=== PATIENT | female | born 1975 | race Caucasian/White ===

== ENCOUNTER 2021-12-06 11:23 | Outpatient (CLI) | payer OTHER, SELFPAY ==
[2021-12-06 22:23] LABS: Vitamin D 25 Hydroxy* 18 ng/mL (30-80)
[2021-12-06 22:59] LABS: Vitamin B12* > 1000 pg/mL (243-894)
[2021-12-08 19:21] LABS: Follicle Stimulating Hormone 16.7 IU/L
== END 2021-12-06 11:24 | disposition home or self-care (01) ==
PROVIDERS: PCP Physician Assistant Medical; Visit Provider Physician Assistant Medical
DX: E53.8 Deficiency of other specified B group vitamins (principal); R53.83 Other fatigue; R79.89 Other specified abnormal findings of blood chemistry
CPT/HCPCS: 82306; 82607; 83001

== ENCOUNTER 2022-05-02 11:35 | Outpatient (CLI) | payer OTHER, SELFPAY ==
[2022-05-02 22:03] LABS: Vitamin D 25 Hydroxy* 27 ng/mL (30-80)
== END 2022-05-02 11:36 | disposition home or self-care (01) ==
LOC: FRMREF 11:36
PROVIDERS: PCP Physician Assistant Medical; Visit Provider Physician Assistant Medical
DX: R79.89 Other specified abnormal findings of blood chemistry (principal)
CPT/HCPCS: 82306

== ENCOUNTER 2022-06-02 14:40 | Outpatient (CLI) | payer OTHER, SELFPAY ==
--- NOTE | 2022-06-02 15:00 | CRLHL7_ITS ---
For Patients: As a result of the Century Cures Act, medical imaging exams and procedure reports are released immediately into your electronic medical record. You may view this report before your referring provider. If you have questions, please contact your health care provider. BILATERAL SCREENING MAMMOGRAM WITH COMPUTER-AIDED DETECTION TECHNIQUE: CC and MLO views were obtained. These mammographic images have been obtained using full-field digital technique. These mammographic images were interpreted with the benefit of computer-aided detection. COMPARISON FILM: 05/31/21, 12/22/19, 03/01/18. FINDINGS: There are scattered areas of fibroglandular density. IMPRESSION: There is no radiographic evidence for malignancy. ASSESSMENT: BI-RADS Category 1: Negative RECOMMENDATION: Routine screening mammogram in 1 year. A lay language report of this examination will be provided to the patient. SAE MARKS M.D. Diagnostic Radiologist [email or web address] Transcribed: 06/03/2022, 2:[address]/Dictated by: Sae Marks MD @ 06/03/2022 12:09:00 PM (Electronically Signed)
== END 2022-06-02 14:41 | disposition home or self-care (01) ==
LOC: MAMMO 14:41
PROVIDERS: PCP Physician Assistant Medical; Visit Provider Physician Assistant Medical
DX: Z12.31 Encounter for screening mammogram for malignant neoplasm of breast (principal)
CPT/HCPCS: 77063; 77067

== ENCOUNTER 2022-06-09 13:34 | Outpatient (REF) | payer OTHER, SELFPAY ==
[2022-06-09 15:17] LABS: Free T4 Free Thyroxine* 1.26 ng/dL (0.70-1.85)
[2022-06-09 15:31] LABS: Thyroid Stimulating Hormone* 0.068 uIU/mL (0.270-4.20)
[2022-06-11 23:38] LABS: Free T3 2.9 pg/mL (2.5-4.3)
== END 2022-06-09 13:35 | disposition home or self-care (01) ==
LOC: NPINS 13:34
PROVIDERS: PCP Physician Assistant Medical; Referring Provider Physician Assistant Medical; Visit Provider Internal Medicine Endocrinology, Diabetes & Metabolism
DX: E03.9 Hypothyroidism, unspecified (principal)
CPT/HCPCS: 84439; 84443; 84481

== ENCOUNTER 2023-07-21 15:37 | Outpatient (CLI) | payer OTHER, SELFPAY ==
--- NOTE | 2023-07-21 16:00 | MM_ITS ---
Patient: CROW RÍOS Facility:?[facility] Patient ID:?[id number] Site Patient ID:?[id number] Site :?[id number] Study:?XRay-Breast Bilateral 3D W/CAD-07/21/2023 4:07:53 PM Ordering Physician:Jazmin Final Report: BILATERAL SCREENING MAMMOGRAM WITH COMPUTER-AIDED DETECTION AND TOMOSYNTHESIS TECHNIQUE: CC and MLO views were obtained. These mammographic images have been obtained using full-field digital technique. These mammographic images were interpreted with the benefit of computer-aided detection. Breast Tomosynthesis was used in this interpretation. COMPARISON FILM: 06/02/22, 05/31/21, 12/22/19. FINDINGS: There are scattered areas of fibroglandular density IMPRESSION: There is no radiographic evidence for malignancy. ASSESSMENT: BI-RADS Category 1: Negative RECOMMENDATION: Routine screening mammogram in 1 year. A lay language report of this examination will be provided to the patient. Sae Pedraza M.D. Diagnostic Radiologist [email or web address] [email or web address]/[email or web address] R& Transcribed: 7:56 p.m. YESENIA/Dictated by: Sae Pedraza MD @ 07/23/2023 1:04:00 PM Signed by:?Sae Pedraza MD @07/23/2023 8:29:56 PM (Electronic Signature)
== END 2023-07-21 15:38 | disposition home or self-care (01) ==
LOC: MAMMO 15:38
PROVIDERS: PCP Physician Assistant Medical; Visit Provider Physician Assistant Medical
DX: Z12.31 Encounter for screening mammogram for malignant neoplasm of breast (principal)
CPT/HCPCS: 77063; 77067

== ENCOUNTER 2024-01-18 08:39 | Outpatient (CLI) | payer OTHER, SELFPAY | END 2024-01-18 08:40 | disposition home or self-care (01) | LOC: NFLDREF 01-21 07:10 | PROVIDERS: PCP Physician Assistant Medical; Referring Provider Physician Assistant Medical; Visit Provider Physician Assistant Medical | DX: R79.89 Other specified abnormal findings of blood chemistry (principal); R53.83 Other fatigue; R63.5 Abnormal weight gain; R03.0 Elevated blood-pressure reading, without diagnosis of hypertension; E78.5 Hyperlipidemia, unspecified; E03.9 Hypothyroidism, unspecified; E53.8 Deficiency of other specified B group vitamins | CPT/HCPCS: 80053; 80061; 82306; 82607; 82728 ==

== ENCOUNTER 2024-01-25 11:15 | Outpatient (CLI) | payer OTHER, SELFPAY ==
[2024-01-28 00:17] LABS: HPV Source Cervix; HPV, High Risk by TMA Not Detected
== END 2024-01-25 11:16 | disposition home or self-care (01) ==
PROVIDERS: PCP Physician Assistant Medical; Visit Provider Physician Assistant
DX: Z12.4 Encounter for screening for malignant neoplasm of cervix (principal)
CPT/HCPCS: 87624; 87625; 88141; 88142

== ENCOUNTER 2024-07-23 13:18 | Emergency (ER) | payer OTHER, SELFPAY ==
[2024-07-23 13:20] VITALS: BP 181/102; PULSE 76; RESP 18; TEMP 36.4; O2SAT 98; BMI 41.6
--- NOTE | 2024-07-23 13:41 | CRLHL7_ITS ---
For Patients: As a result of the Century Cures Act, medical imaging exams and procedure reports are released immediately into your electronic medical record. You may view this report before your referring provider. If you have questions, please contact your health care provider. INDICATION: Chest pain TECHNIQUE: Chest 1 views. COMPARISON: None FINDINGS: Limitations: AP portable semi upright under penetrated study with large patient habitus. Tubes and devices: None. Lungs: Lungs are likely clear. No focal infiltrate or mass. Pleura: No pleural effusion. No pneumothorax. Heart: Heart size and vasculature are normal in caliber and appearance. Susan and Mediastinum: No enlargement. Bones and soft tissues: No significant findings. IMPRESSION: Suboptimal technique. The lungs are likely clear but if left lower lobe infiltrate is suspected then suggest repeat CXR with PA and lateral views. Dictated by Deepak Marr MD @ 07/23/2024 2:35:56 PM (Electronically Signed)
--- NOTE | 2024-07-23 13:48 | ED_ITS ---
HPI - Chest Pain General Chief Complaint: Chest Pain Stated Complaint: Signs of Heart Attack Time Seen by Provider: 07/23/24 13:25 History of Present Illness HPI narrative: Patient is a 49-year-old woman who recently increased her activity level. She since that time is developed hand and foot swelling with exertion. She also has been having some pain in the posterior chest in the midline. She has been more fatigued than normal. She has had no fevers no chills no night sweats no overt anterior chest pain no nausea no vomiting no change in her bowel or bladder. Patient is extremely anxious as her father has a history of coronary disease and she is worried that she may have a heart attack. She brought herself to the emergency room today stating that she would like piece of mind that everything is okay. She has been out of her Synthroid for 2-3 weeks. Related Data Home Medications ?Medication ?Instructions ?Recorded ?Confirmed levonorgestrel (Mirena) 1 device intrauterine ONCE 12/06/21 07/23/24 levothyroxine 150 mcg tablet 150 mcg PO DAILY 12/06/21 07/23/24 liothyronine 5 mcg tablet 1 mcg PO .QOD 12/06/21 07/23/24 Previous Rx's ?Medication ?Instructions ?Recorded desvenlafaxine 100 mg 100 mg PO DAILY #90 tabs 03/04/24 tablet,extended release 24 hr estradiol 0.0375 mg/24 hr 1 patch transdermal 2XW #8 ea 07/04/24 semiweekly transdermal patch methylphenidate HCl 54 mg 54 mg PO QAM #30 tabs 07/04/24 tablet,extended release 24 hr (Concerta) methylphenidate HCl 54 mg 54 mg PO QAM #30 tabs 07/04/24 tablet,extended release 24 hr (Concerta) methylphenidate HCl 54 mg 54 mg PO QAM #30 tabs 07/04/24 tablet,extended release 24 hr (Concerta) tirzepatide 2.5 mg/0.5 mL 2.5 mg (0.5 mL) subcut QWEEK #2 mL 07/04/24 subcutaneous pen injector (Mateo) levothyroxine 150 mcg capsule 150 mcg PO DAILY #30 caps 07/23/24 Allergies Allergy/AdvReac Type Severity Reaction Status Date / Time cefuroxime Allergy Intermediate Diarrhea Verified 07/23/24 13:28 trazodone AdvReac Mild somnolence Verified 07/23/24 13:28 Review of Systems Status of ROS Reports: 10 or more systems reviewed and unremarkable except as noted in History and below 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 ?Z86.39 - Personal history of other endocrine, nutritional and metabolic disease (ICD-10) Surgical History History of unilateral salpingectomy ?Z90.79 - Acquired absence of other genital organ(s) (ICD-10) History of tonsillectomy ?Z90.89 - Acquired absence of other organs (ICD-10) History of repair of anterior cruciate ligament of right knee ?Z98.890 - Other specified postprocedural states (ICD-10) History of nasal surgery ?Z98.890 - Other specified postprocedural states (ICD-10) History of dilation and curettage ?Z98.890 - Other specified postprocedural states (ICD-10) History of section ?Z98.891 - History of uterine scar from previous surgery (ICD-10) Family History Family/Other Breast cancer Coronary artery disease Brother Diabetes Maternal Grandmother Type 2 diabetes mellitus Father High blood pressure Hyperlipidemia Mother Ovarian cancer Family history of peritoneal cancer Social History Narrative: Consumes alcohol occasionally Does not use illicit drugs Non-smoker What is your current living situation?: I presently have a place to live Problems where you live: no known problems In the past 12 months, utilities in danger of being shut off: no In past 12 months, lack of transportation kept you from medical appts, meetings, work, or getting things needed for daily living: no In the past 12 mos, have been you worried that your food would run out before you had money to buy more?: never true In the past 12 mos, the food you bought just didn't last and you didn't have money to buy more?: never true Smoking Status: Never smoker How often does anyone, including family, friends and others, physically hurt you : never How often does anyone, including family, friends and others, insult or talk down to you: rarely How often does anyone, including family, friends and others, threaten you with harm: never How often does anyone, including family, friends and others, scream or curse at you: rarely Health Related Social Needs: Other personal risk factors, not elsewhere classified (Z91.89) Exam Narrative Exam Narrative: EXAM GENERAL: Patient appears extremely anxious. EYES: No scleral icterus. ENT: Tympanic membranes and oropharynx normal. THYROID: no thyroid nodules or thyromegaly. LYMPH: No supraclavicular or cervical lymphadenopathy. SKIN: Visible skin seen during exam normal or with benign process only. EXT: No dependent lower extremity pedal edema. HEART: Regular rate and rhythm with no murmurs, rubs, or gallops. LUNGS: Clear to auscultation bilaterally with no crackles or wheezes. ABD: Soft, non tender, non distended. PSYCH: Good eye contact, speech is not pressured. Const Vital Signs, click to edit/add: Vital Signs - 24 hr 07/23/24 13:20 Temperature 97.5 F L Pulse Rate [Pulse Oximeter] 76 Respiratory Rate 18 Blood Pressure [Right Upper Arm] 181/102 H Pulse Oximetry 98 Oxygen Delivery Method Room Air Course Course ED Course: Patient seen examined. Troponin D-dimer CBC comprehensive metabolic panel EKG chest x-ray pending. Vital Signs Vital signs: Initial Vital Signs Temperature 97.5 F L 07/23/24 13:20 Temperature Source Temporal Artery Scan 07/23/24 13:20 Pulse Rate 76 07/23/24 13:20 Respiratory Rate 18 07/23/24 13:20 Blood Pressure 181/102 H 07/23/24 13:20 Blood Pressure Mean 128 H 07/23/24 13:20 Blood Pressure Position Sitting 07/23/24 13:20 Pulse Oximetry 98 07/23/24 13:20 Oxygen Delivery Method Room Air 07/23/24 13:20 Vital Signs Temperature 97.5 F L 07/23/24 13:20 Pulse Rate 76 07/23/24 13:20 Respiratory Rate 18 07/23/24 13:20 Blood Pressure 181/102 H 07/23/24 13:20 Pulse Oximetry 98 07/23/24 13:20 Oxygen Delivery Method Room Air 07/23/24 13:20 Temperature 97.5 F L 07/23/24 13:20 Pulse Rate 76 07/23/24 13:20 Respiratory Rate 18 07/23/24 13:20 Blood Pressure 181/102 H 07/23/24 13:20 Pulse Oximetry 98 07/23/24 13:20 Oxygen Delivery Method Room Air 07/23/24 13:20 MDM - Chest Pain MDM Narrative Medical decision making narrative: Patient presents with a constellation of symptoms consistent with increasing her activity recently and not taking her Synthroid. She does take a fairly hefty dose of 150 mcg to be out of it for 2 weeks is probably too long. She has a negative EKG negative chest x-ray negative D-dimer electrolytes are reasonable. This time I did restart her Synthroid as her follow-up with her primary physician a previously scheduled appointment that she has in 2 weeks. Lab Data Labs: Lab Results 07/23/24 Range/Units 13:53 WBC 5.90 (4.50-11.00) K/uL RBC 5.16 (4.00-5.20) m/uL Hgb 15.6 (12.0-16.0) gm/dL Hct 46.8 (33.0-51.0) % MCV 91 (80-100) fL MCH 30 (26-34) pg MCHC 33 (32-36) gm/dL RDW Coeff of Hanh 14.1 (11.5-15.5) % Plt Count 264 (140-440) K/uL Neut % (Auto) 50.8 (42.0-72.0) % Lymph % (Auto) 43.4 (20-44) % Chaffee % (Auto) 5.3 (0.0-11.0) % Eos % (Auto) 0.2 (0.0-7.0) % Baso % (Auto) 0.0 (0.0-3.0) % Neut # (Auto) 3.00 (1.7-7.0) K/uL Lymph # (Auto) 2.56 (0.90-2.90) K/uL Chaffee # (Auto) 0.30 (0.00-0.90) K/UL Eos # (Auto) 0.01 (0.00-0.50) K/uL Baso # (Auto) 0.00 (0.00-0.30) K/uL Abs Immat Gran (auto) 0.02 (0.00-0.30) K/uL Imm/Tot Granulo (auto) 0.3 % D-Dimer Quant (PE/DVT) 0.17 (0.00-0.50) ug/ml Sodium 139 (135-149) mmol/L Potassium 3.9 (3.6-5.1) mmol/L Chloride 103 (96-114) mmol/L Carbon Dioxide 25 (20-32) mmol/L Anion Gap 11 (7-15) mEq/L BUN 20 (5-24) mg/dL Creatinine 1.3 (0.5-1.5) mg/dL Estimated Creat Clear 55.91 Estimated GFR 51 ml/min Glucose 94 (60-115) mg/dL Calcium 9.5 (8.4-10.6) mg/dL Total Bilirubin 1.0 (0.1-1.5) mg/dL AST 46 H (12-35) U/L ALT 49 H (4-35) U/L Alkaline Phosphatase 58 (40-150) U/L Troponin I < 0.01 (0.01-0.04) ng/mL Total Protein 8.4 H (6.0-8.3) g/dL Albumin 5.0 (3.3-5.0) g/dL Discharge Plan Discharge Clinical Impression: Fatigue Patient Disposition: Home, Self-Care Condition: Stable Instructions: Fatigue (ED) Additional Instructions: Resume Synthroid Continue current care Follow-up with your doctor at previously scheduled appointment. Activity Level: No Restrictions Discharge Diet: Regular Prescriptions: New levothyroxine 150 mcg capsule 150 mcg PO DAILY Qty: 30 0RF No Action Mirena 20 mcg/24 hours (7 yrs) 52 mg intrauterine device 1 device intrauterine ONCE Rx Instructions: as a single dose liothyronine 5 mcg tablet 1 mcg PO .QOD levothyroxine 150 mcg tablet 150 mcg PO DAILY Mounjaro 2.5 mg/0.5 mL pen injector 2.5 mg subcut QWEEK Qty: 2 0RF Patient Comments: has not started and has picked up methylphenidate HCl [Concerta] 54 mg tablet extended release 24hr 54 mg PO QAM Qty: 30 0RF methylphenidate HCl [Concerta] 54 mg tablet extended release 24hr 54 mg PO QAM Qty: 30 0RF methylphenidate HCl [Concerta] 54 mg tablet extended release 24hr 54 mg PO QAM Qty: 30 0RF estradiol 0.0375 mg/24 hr patch semiweekly 1 patch transdermal 2XW Qty: 8 0RF desvenlafaxine 100 mg tablet extended release 24 hr 100 mg PO DAILY Qty: 90 3RF Rx Instructions: ok to dispense succinate formulation if in stock or whatever form of desvenlafaxine is available at this dose Follow Up/Referrals: Jacqueline Juan PA-C [Primary Care Provider] - Stand Alone Forms: MyHealth Info Instructions
[2024-07-23 13:58] LABS: Eosinophils Absolute Auto 0.01 K/uL (0.00-0.50); Eosinophils Percent Auto 0.2 % (0.0-7.0); Hematocrit 46.8 % (33.0-51.0); Hemoglobin* 15.6 gm/dL (12.0-16.0); Immature Granulocytes Abs Auto 0.02 K/uL (0.00-0.30); Immature Granulocytes Pct Auto 0.3 %; Lymphocytes Absolute Auto 2.56 K/uL (0.90-2.90); Lymphocytes Percent Auto 43.4 % (20-44); Mean Corpuscular HGB Conc 33 gm/dL (32-36); Mean Corpuscular Hemoglobin 30 pg (26-34); Mean Corpuscular Volume 91 fL (80-100); Monocytes Percent Auto 5.3 % (0.0-11.0); Neutrophils Percent Auto 50.8 % (42.0-72.0); Platelet Count* 264 K/uL (140-440); RDW Coefficient of Variation % 14.1 % (11.5-15.5); Red Blood Count 5.16 m/uL (4.00-5.20)
[2024-07-23 14:11] LABS: Chloride* 103 mmol/L (96-114)
[2024-07-23 14:12] LABS: Potassium* 3.9 mmol/L (3.6-5.1); Sodium* 139 mmol/L (135-149)
[2024-07-23 14:14] LABS: Blood Urea Nitrogen* 20 mg/dL (5-24); Creatinine* 1.3 mg/dL (0.5-1.5); Est. Creatinine Clearance* 55.91; Estimated Glomerular Filt Rate 51 ml/min
[2024-07-23 14:15] LABS: Alanine Aminotransferase* 49 U/L (4-35); Alkaline Phosphatase* 58 U/L (40-150); Anion Gap 11 mEq/L (7-15); Aspartate Amino Transferase* 46 U/L (12-35); Calcium* 9.5 mg/dL (8.4-10.6); Carbon Dioxide* 25 mmol/L (20-32); Glucose* 94 mg/dL (60-115); Total Protein* 8.4 g/dL (6.0-8.3)
[2024-07-23 14:22] LABS: Slide Review Reflex No
[2024-07-23 14:23] LABS: D Dimer Quantitative* 0.17 ug/ml (0.00-0.50)
[2024-07-23 14:32] LABS: Troponin I* < 0.01 ng/mL (0.01-0.04)
[2024-07-23 15:20] LABS: Thyroid Stimulating Hormone* > 100.000 uIU/mL (0.270-4.20)
== END 2024-07-23 14:49 | disposition home or self-care (01) ==
PROVIDERS: Emergency Provider Internal Medicine; PCP Physician Assistant Medical
DX: R53.83 Other fatigue (principal); R07.9 Chest pain, unspecified; Z79.890 Hormone replacement therapy
CPT/HCPCS: 36415; 71045; 80053; 84443; 84484; 85025; 85379; 93005; 99283; 99284; 99285